=== PATIENT | female | born 1940 | race Caucasian/White ===

== ENCOUNTER 2019-05-03 14:32 | Inpatient (IN) | payer MEDICARE ==
[~2019-05-03] VITALS: Ht 170.2 cm; Wt 66.2 kg
[2019-05-03] MEDS ORDERED: LATA2.5D7 EACHEYE (14:54)
[2019-05-03] MEDS ORDERED: MULT-213 PO (14:54)
[2019-05-03] MEDS ORDERED: ROSU10TA2 PO (14:54)
[2019-05-03] MEDS ORDERED: DULO30CA2 PO (14:54)
[2019-05-03] MEDS ORDERED: BIMA2.5D5 EACHEYE (14:54)
[2019-05-03] MEDS ORDERED: ERGO2000 PO (14:54)
[2019-05-03] MEDS ORDERED: HALDOL IM (15:05)
[2019-05-03] MEDS ORDERED: TIMO5SOL11 EACHEYE (15:05)
[2019-05-03] MEDS ORDERED: MIRT15TA PO (15:05)
[2019-05-03] MEDS ORDERED: AMLO5TAB9 PO (15:05)
[2019-05-03] MEDS ORDERED: BISO1TAB35 PO (15:05)
[2019-05-03] MEDS ORDERED: DOCU100C36 PO (15:05)
[2019-05-03] MEDS ORDERED: TELM40TA2 PO (15:05)
[2019-05-03] MEDS ORDERED: METH-406 PO (15:05)
[2019-05-03] MEDS ORDERED: POLY17PO4 PO (15:05)
[2019-05-03] MEDS ORDERED: TEMA15CA PO (15:05)
[2019-05-03] MEDS ORDERED: RANI150T8 PO (15:05)
[2019-05-03] MEDS ORDERED: SIME80TA15 PO (15:05)
[2019-05-03] MEDS ORDERED: BETH25TA10 PO (15:05)
[2019-05-03] MEDS ORDERED: LACT10SO7 PO (15:05)
[2019-05-03 15:09] LABS: BASOPHILS % (AUTO) 0.5 % (0.0-2.0); EOSINOPHILS # (AUTO) 0.1 K/uL (0.0-0.7); EOSINOPHILS % (AUTO) 2.2 % (0.0-7.0); HEMATOCRIT 36.9 % (31.2-41.9); HEMOGLOBIN 12.1 g/dL (10.9-14.3); LYMPHOCYTES # (AUTO) 1.2 K/uL (20.0-40.0); LYMPHOCYTES % (AUTO) 25.6 % (20.5-51.5); MEAN CORPUSCULAR HEMOGLOBIN 27.8 uug (24.7-32.8); MEAN CORPUSCULAR HGB CONC 33 g/dL (32.3-35.6); MEAN CORPUSCULAR VOLUME 84.6 fL (75.5-95.3); MONOCYTES # (AUTO) 0.6 K/uL (2.0-10.0); MONOCYTES % (AUTO) 12.7 % (0.0-11.0); NEUTROPHILS # (AUTO) 2.7 K/uL (1.8-8.9); PLATELET COUNT (AUTO) 113 K/uL (179-408); RED BLOOD CELL COUNT(AUTO) 4.37 MIL/uL (3.63-4.92); WHITE BLOOD COUNT (AUTO) 4.6 K/uL (3.8-11.8)
[2019-05-03 15:18] LABS: CARBON DIOXIDE 30 mmol/L (21-32); CHLORIDE 110 mmol/L (98-107); CREATININE 0.9 mg/dL (0.6-1.3); GLUCOSE 103 mg/dL (74-106); POTASSIUM 4.4 mmol/L (3.5-5.1); UREA NITROGEN, BLOOD 19 mg/dL (7-18)
[2019-05-03 15:22] LABS: ETHANOL < 3 MG/DL (0-0)
[2019-05-03 15:25] LABS: ALANINE AMINOTRANSFERASE 24 U/L (14-59); ALKALINE PHOSPHATASE 74 U/L (50-136); ASPARTATE AMINOTRANSFERASE 20 U/L (15-37); BILIRUBIN,DIRECT 0.1 mg/dL (0.0-0.2); BILIRUBIN,TOTAL 0.3 mg/dL (0.2-1.0); TOTAL PROTEIN, SERUM 5.7 g/dL (6.4-8.2)
[2019-05-03 15:27] LABS: ACETAMINOPHEN < 2.0 ug/mL (10-30)
[2019-05-03 15:37] LABS: THYROID STIMULATING HORMONE 1.162 mIU/mL (0.358-3.740)
[2019-05-03 15:38] LABS: *BILIRUBIN,URIN 1+ (NEGATIVE); *BLOOD, URINE NEGATIVE (NEGATIVE); *CLARITY,URINE SLIGHTLY CLOUDY (CLEAR); *COLOR,URINE DARK YELLOW (YELLOW); *KETONES,URINE TRACE (NEGATIVE); LEUKOCYTE ESTERASE ,URINE 1+ (NEGATIVE); NITRITE, URINE NEGATIVE (NEGATIVE); PH,URINE 6.5 (5.0-8.0); UGLUCOSE NEGATIVE (NEGATIVE)
[2019-05-03 15:54] LABS: BACTERIA,URINE MANY /HPF (NONE SEEN); MUCUS,URINE MANY /LPF (0-FEW); SQUAMOUS EPITHELIAL CELL,UR MODERATE /HPF (NONE SEEN)
[2019-05-03 16:01] LABS: *AMPHETAMINE, URINE NEGATIVE (NEGATIVE); *BARBITURATE, URINE NEGATIVE (NEGATIVE); *CANNABINOID, URINE NEGATIVE (NEGATIVE); *COCCAINE, URINE NEGATIVE (NEGATIVE); *OPIATE, URINE NEGATIVE (NEGATIVE); *PHENCYCLIDINE SCREEN,URINE NEGATIVE (NEGATIVE)
[2019-05-03] MEDS ORDERED: CEphaleXIN 500 MG CAPSULE PO ONE (16:45)
[2019-05-03] MEDS ORDERED: CEphaleXIN 500 MG CAPSULE ONE (16:50)
[2019-05-03 17:05] VITALS: BP 142/91
[2019-05-03] MEDS ORDERED: SIMETHICONE 80 MG TAB.CHEW PO PRN (17:15)
[2019-05-03] MEDS ORDERED: METHOCARBAMOL 750 MG TABLET PO PRN (17:15)
[2019-05-03] MEDS ORDERED: LACTULOSE 20 G/30 ML LIQUID UDC PO PRN (17:15)
[2019-05-03] MEDS ORDERED: MIRALAX 17 GM POWD.PACK PO PRN (17:15)
[2019-05-03] MEDS ORDERED: Medication Not On Formulary EA (Ergocalciferol (Vitamin D2) (Vitamin D2 TAB) 50,000 UNIT PO SCH (17:15)
[2019-05-03] MEDS ORDERED: ACETAMINOPHEN 325 MG TABLET PO PRN (17:45)
[2019-05-03] MEDS ORDERED: BLOOD SUGAR DIAGNOSTIC 1 EACH STRIP VI ONE (17:45)
[2019-05-03] MEDS ORDERED: MAGNESIUM HYDROXIDE 30 ML LIQUID UDC PO PRN (17:45)
[2019-05-03] MEDS ORDERED: MAG HYDROX/AL HYDROX/SIMETH 30 ML LIQUID UDC PO PRN (17:45)
[2019-05-03] MEDS: CEphaleXIN 500 MG CAPSULE PO SCH (18:40)
[2019-05-03] MEDS ORDERED: TEMAZEPAM 7.5 MG CAPSULE PO PRN (19:45)
[2019-05-03] MEDS: ATORVASTATIN 20 MG TABLET PO SCH (20:36)
[2019-05-03] MEDS: CLONAZEPAM 0.5 MG TABLET PO PRN (20:36)
[2019-05-03 20:58] VITALS: BP 116/66
[2019-05-04 07:30] VITALS: BP 114/85
[2019-05-04] MEDS ORDERED: HALOPERIDOL LACTATE 5 MG/1 ML VIAL IM ONE (08:15)
[2019-05-04] MEDS ORDERED: diphenhydrAMINE 50 MG/1 ML VIAL IM ONE (08:15)
[2019-05-04] MEDS ORDERED: LORAZEPAM 2 MG/1 ML VIAL IM ONE (08:15)
[2019-05-04] MEDS: BETHANECHOL CHLORIDE 25 MG TABLET PO SCH ×3 (08:47→17:57)
[2019-05-04] MEDS: FAMOTIDINE 20 MG TABLET PO SCH (08:56)
[2019-05-04] MEDS: LOSARTAN POTASSIUM 50 MG TABLET PO SCH (08:56)
[2019-05-04] MEDS: DOCUSATE SODIUM 100 MG CAPSULE PO SCH ×2 (08:57→17:42)
[2019-05-04] MEDS: MULTIVITAMINS,THERAPEUTIC TABLET PO SCH (08:57)
[2019-05-04] MEDS: CEphaleXIN 500 MG CAPSULE PO SCH ×2 (08:57→17:42)
[2019-05-04] MEDS: AMLODIPINE 5 MG TABLET PO SCH ×2 (08:58→17:00)
[2019-05-04] MEDS: LATANOPROST OPHT DROP 2.5 ML BOTTLE EACHEYE SCH (08:58)
[2019-05-04] MEDS ORDERED: Medication Not On Formulary EA (Multivitamins W-Minerals (Multivitamin With Minerals) 1 PO SCH (09:00)
[2019-05-04] MEDS ORDERED: Medication Not On Formulary EA (Rosuvastatin Calcium (Crestor) 10 MG) PO SCH (09:00)
[2019-05-04] MEDS: DULOXETINE 30 MG CAPSULE.DR PO SCH (11:32)
[2019-05-04] MEDS: QUETIAPINE FUMARATE 25 MG TABLET PO SCH ×2 (12:44→17:42)
[2019-05-04] MEDS: DIVALPROEX SPRINKLE 125 MG CAP.SPRINK PO SCH ×2 (12:44→17:42)
[2019-05-04 16:00] VITALS: BP 80/46
[2019-05-04 16:45] VITALS: BP 107/69
[2019-05-04 20:51] VITALS: BP 104/58
[2019-05-04] MEDS: ATORVASTATIN 20 MG TABLET PO SCH (21:00)
[2019-05-04] MEDS: MIRTAZAPINE 15 MG TABLET PO SCH (21:00)
[2019-05-05 07:30] VITALS: BP 127/88
[2019-05-05 07:50] LABS: THYROID STIMULATING HORMONE 1.645 mIU/mL (0.358-3.740)
[2019-05-05] MEDS: QUETIAPINE FUMARATE 25 MG TABLET PO SCH ×3 (09:03→16:46)
[2019-05-05] MEDS: FAMOTIDINE 20 MG TABLET PO SCH (09:03)
[2019-05-05] MEDS: DULOXETINE 30 MG CAPSULE.DR PO SCH (09:03)
[2019-05-05] MEDS: LOSARTAN POTASSIUM 50 MG TABLET PO SCH (09:04)
[2019-05-05] MEDS: CEphaleXIN 500 MG CAPSULE PO SCH (09:04)
[2019-05-05] MEDS: DOCUSATE SODIUM 100 MG CAPSULE PO SCH ×2 (09:04→16:47)
[2019-05-05] MEDS: MULTIVITAMINS,THERAPEUTIC TABLET PO SCH (09:04)
[2019-05-05] MEDS: BETHANECHOL CHLORIDE 25 MG TABLET PO SCH ×3 (09:04→16:46)
[2019-05-05] MEDS: LATANOPROST OPHT DROP 2.5 ML BOTTLE EACHEYE SCH (09:05)
[2019-05-05] MEDS: DIVALPROEX SPRINKLE 125 MG CAP.SPRINK PO SCH ×3 (09:05→16:46)
[2019-05-05] MEDS: AMLODIPINE 5 MG TABLET PO SCH ×2 (09:05→16:47)
[2019-05-05] MEDS: METHOCARBAMOL 500 MG TABLET PO PRN (12:58)
[2019-05-05 16:52] VITALS: BP 93/55
[2019-05-05] MEDS: NITROFURANTOIN/NITROFURAN MAC 100 MG CAPSULE PO SCH (20:24)
[2019-05-05] MEDS: MIRTAZAPINE 15 MG TABLET PO SCH (20:25)
[2019-05-05] MEDS: ATORVASTATIN 20 MG TABLET PO SCH (20:25)
[2019-05-05 20:44] VITALS: BP 114/67
[2019-05-06 08:00] VITALS: BP 128/78
[2019-05-06] MEDS: LATANOPROST OPHT DROP 2.5 ML BOTTLE EACHEYE SCH (09:22)
[2019-05-06] MEDS: DOCUSATE SODIUM 100 MG CAPSULE PO SCH ×2 (09:22→17:13)
[2019-05-06] MEDS: FAMOTIDINE 20 MG TABLET PO SCH (09:23)
[2019-05-06] MEDS: DIVALPROEX SPRINKLE 125 MG CAP.SPRINK PO SCH ×3 (09:23→17:13)
[2019-05-06] MEDS: QUETIAPINE FUMARATE 25 MG TABLET PO SCH ×3 (09:23→17:13)
[2019-05-06] MEDS: DULOXETINE 30 MG CAPSULE.DR PO SCH (09:23)
[2019-05-06] MEDS: BETHANECHOL CHLORIDE 25 MG TABLET PO SCH ×3 (09:23→17:13)
[2019-05-06] MEDS: AMLODIPINE 5 MG TABLET PO SCH ×2 (09:24→17:00)
[2019-05-06] MEDS: LOSARTAN POTASSIUM 50 MG TABLET PO SCH (09:24)
[2019-05-06] MEDS: MULTIVITAMINS,THERAPEUTIC TABLET PO SCH (09:24)
[2019-05-06] MEDS: NITROFURANTOIN/NITROFURAN MAC 100 MG CAPSULE PO SCH ×2 (09:26→20:36)
[2019-05-06 15:50] VITALS: BP 96/65
[2019-05-06] MEDS: MIRTAZAPINE 15 MG TABLET PO SCH (20:36)
[2019-05-06] MEDS: ATORVASTATIN 20 MG TABLET PO SCH (20:36)
[2019-05-07 07:49] VITALS: BP 107/68
[2019-05-07] MEDS: NITROFURANTOIN/NITROFURAN MAC 100 MG CAPSULE PO SCH ×2 (08:47→20:48)
[2019-05-07] MEDS: LATANOPROST OPHT DROP 2.5 ML BOTTLE EACHEYE SCH (08:47)
[2019-05-07] MEDS: FAMOTIDINE 20 MG TABLET PO SCH (08:48)
[2019-05-07] MEDS: DOCUSATE SODIUM 100 MG CAPSULE PO SCH ×2 (08:48→17:21)
[2019-05-07] MEDS: BETHANECHOL CHLORIDE 25 MG TABLET PO SCH ×3 (08:48→17:21)
[2019-05-07] MEDS: MULTIVITAMINS,THERAPEUTIC TABLET PO SCH (08:48)
[2019-05-07] MEDS: DULOXETINE 30 MG CAPSULE.DR PO SCH (08:48)
[2019-05-07] MEDS: LOSARTAN POTASSIUM 50 MG TABLET PO SCH (08:49)
[2019-05-07] MEDS: DIVALPROEX SPRINKLE 125 MG CAP.SPRINK PO SCH ×3 (08:49→17:22)
[2019-05-07] MEDS: QUETIAPINE FUMARATE 25 MG TABLET PO SCH ×3 (08:49→17:22)
[2019-05-07] MEDS: AMLODIPINE 5 MG TABLET PO SCH ×2 (08:50→17:22)
[2019-05-07 15:52] VITALS: BP 90/49
[2019-05-07 16:30] VITALS: BP 95/53
[2019-05-07] MEDS: MIRTAZAPINE 15 MG TABLET PO SCH (20:48)
[2019-05-07] MEDS: ATORVASTATIN 20 MG TABLET PO SCH (20:48)
[2019-05-07 21:10] VITALS: BP 91/53
[2019-05-07] MEDS: CLONAZEPAM 0.5 MG TABLET PO PRN (23:15)
[2019-05-08 04:00] VITALS: BP 124/71
[2019-05-08 07:30] VITALS: BP 105/77
[2019-05-08] MEDS: DIVALPROEX SPRINKLE 125 MG CAP.SPRINK PO SCH ×3 (08:56→18:04)
[2019-05-08] MEDS: QUETIAPINE FUMARATE 25 MG TABLET PO SCH ×3 (08:57→18:05)
[2019-05-08] MEDS: BETHANECHOL CHLORIDE 25 MG TABLET PO SCH ×3 (08:57→18:07)
[2019-05-08] MEDS: LOSARTAN POTASSIUM 50 MG TABLET PO SCH (08:57)
[2019-05-08] MEDS: MULTIVITAMINS,THERAPEUTIC TABLET PO SCH (08:57)
[2019-05-08] MEDS: NITROFURANTOIN/NITROFURAN MAC 100 MG CAPSULE PO SCH ×2 (08:57→20:12)
[2019-05-08] MEDS: DULOXETINE 30 MG CAPSULE.DR PO SCH (08:57)
[2019-05-08] MEDS: FAMOTIDINE 20 MG TABLET PO SCH (08:57)
[2019-05-08] MEDS: DOCUSATE SODIUM 100 MG CAPSULE PO SCH ×2 (08:58→18:05)
[2019-05-08] MEDS: AMLODIPINE 5 MG TABLET PO SCH ×2 (08:58→17:00)
[2019-05-08] MEDS: ERGOCALCIFEROL 50,000 UNIT CAPSULE PO SCH (09:01)
[2019-05-08] MEDS: LATANOPROST OPHT DROP 2.5 ML BOTTLE EACHEYE SCH (09:03)
[2019-05-08 16:00] VITALS: BP 104/79
[2019-05-08] MEDS: MIRTAZAPINE 15 MG TABLET PO SCH (20:12)
[2019-05-08] MEDS: ATORVASTATIN 20 MG TABLET PO SCH (20:12)
[2019-05-08] MEDS: CLONAZEPAM 0.5 MG TABLET PO PRN (20:20)
[2019-05-08 23:19] VITALS: BP 118/67
[2019-05-09 05:51] VITALS: BP 143/93
[2019-05-09] MEDS: DOCUSATE SODIUM 100 MG CAPSULE PO SCH ×2 (08:22→17:44)
[2019-05-09] MEDS: QUETIAPINE FUMARATE 25 MG TABLET PO SCH ×3 (08:22→17:44)
[2019-05-09] MEDS: MULTIVITAMINS,THERAPEUTIC TABLET PO SCH (08:23)
[2019-05-09] MEDS: DULOXETINE 30 MG CAPSULE.DR PO SCH (08:23)
[2019-05-09] MEDS: DIVALPROEX SPRINKLE 125 MG CAP.SPRINK PO SCH ×2 (08:23→17:44)
[2019-05-09] MEDS: FAMOTIDINE 20 MG TABLET PO SCH (08:23)
[2019-05-09] MEDS: AMLODIPINE 5 MG TABLET PO SCH ×2 (08:23→17:00)
[2019-05-09] MEDS: BETHANECHOL CHLORIDE 25 MG TABLET PO SCH ×3 (08:23→17:44)
[2019-05-09] MEDS: LOSARTAN POTASSIUM 50 MG TABLET PO SCH (08:24)
[2019-05-09] MEDS: LATANOPROST OPHT DROP 2.5 ML BOTTLE EACHEYE SCH (08:32)
[2019-05-09 15:46] VITALS: BP 94/62
[2019-05-09] MEDS: CLONAZEPAM 0.5 MG TABLET PO PRN (16:07)
[2019-05-09 20:00] VITALS: BP 114/72
[2019-05-09] MEDS: ATORVASTATIN 20 MG TABLET PO SCH (20:45)
[2019-05-09] MEDS: MIRTAZAPINE 15 MG TABLET PO SCH (20:45)
[2019-05-10 08:00] VITALS: BP 117/80
[2019-05-10] MEDS: DULOXETINE 30 MG CAPSULE.DR PO SCH (08:55)
[2019-05-10] MEDS: DIVALPROEX SPRINKLE 125 MG CAP.SPRINK PO SCH ×2 (08:55→16:50)
[2019-05-10] MEDS: QUETIAPINE FUMARATE 25 MG TABLET PO SCH ×3 (08:57→16:51)
[2019-05-10] MEDS: BETHANECHOL CHLORIDE 25 MG TABLET PO SCH ×3 (08:57→16:51)
[2019-05-10] MEDS: FAMOTIDINE 20 MG TABLET PO SCH (08:57)
[2019-05-10] MEDS: MULTIVITAMINS,THERAPEUTIC TABLET PO SCH (08:58)
[2019-05-10] MEDS: LATANOPROST OPHT DROP 2.5 ML BOTTLE EACHEYE SCH (08:58)
[2019-05-10] MEDS: DOCUSATE SODIUM 100 MG CAPSULE PO SCH ×2 (08:58→16:50)
[2019-05-10] MEDS: AMLODIPINE 5 MG TABLET PO SCH ×2 (09:00→16:51)
[2019-05-10] MEDS: LOSARTAN POTASSIUM 50 MG TABLET PO SCH (09:00)
[2019-05-10 13:22] VITALS: BP 87/55
[2019-05-10 13:38] VITALS: BP 98/54
[2019-05-10 14:27] VITALS: BP 145/81
[2019-05-10 16:46] VITALS: BP 108/70
[2019-05-10 19:49] VITALS: BP 96/67
[2019-05-10] MEDS: CLONAZEPAM 0.5 MG TABLET PO PRN (20:30)
[2019-05-10] MEDS: ATORVASTATIN 20 MG TABLET PO SCH (20:30)
[2019-05-10] MEDS: MIRTAZAPINE 15 MG TABLET PO SCH (20:30)
[2019-05-11 07:39] VITALS: BP 105/66
[2019-05-11] MEDS: DULOXETINE 30 MG CAPSULE.DR PO SCH (08:42)
[2019-05-11] MEDS: DIVALPROEX SPRINKLE 125 MG CAP.SPRINK PO SCH ×2 (08:43→17:09)
[2019-05-11] MEDS: BETHANECHOL CHLORIDE 25 MG TABLET PO SCH ×3 (08:43→17:09)
[2019-05-11] MEDS: MULTIVITAMINS,THERAPEUTIC TABLET PO SCH (08:43)
[2019-05-11] MEDS: QUETIAPINE FUMARATE 25 MG TABLET PO SCH ×3 (08:44→17:10)
[2019-05-11] MEDS: LATANOPROST OPHT DROP 2.5 ML BOTTLE EACHEYE SCH (08:44)
[2019-05-11] MEDS: DOCUSATE SODIUM 100 MG CAPSULE PO SCH ×2 (08:44→17:11)
[2019-05-11] MEDS: FAMOTIDINE 20 MG TABLET PO SCH (08:44)
[2019-05-11] MEDS: AMLODIPINE 5 MG TABLET PO SCH ×2 (08:45→17:11)
[2019-05-11] MEDS: LOSARTAN POTASSIUM 50 MG TABLET PO SCH (08:45)
[2019-05-11] MEDS: CLONAZEPAM 0.5 MG TABLET PO PRN ×2 (10:22→18:17)
[2019-05-11 11:35] VITALS: BP 92/56
[2019-05-11] MEDS: METHOCARBAMOL 500 MG TABLET PO PRN (11:44)
[2019-05-11 16:52] VITALS: BP 106/62
[2019-05-11 19:30] VITALS: BP 85/50
[2019-05-11] MEDS ORDERED: LORAZEPAM 2 MG/1 ML VIAL IM ONE (20:30)
[2019-05-11] MEDS: MIRTAZAPINE 15 MG TABLET PO SCH (20:41)
[2019-05-11] MEDS: ATORVASTATIN 20 MG TABLET PO SCH (20:41)
[2019-05-11] MEDS: TEMAZEPAM 7.5 MG CAPSULE PO PRN (21:17)
[2019-05-12] VITALS (10 sets, daily range): BP systolic 75–109; BP diastolic 39–71
[2019-05-12] MEDS: CLONAZEPAM 0.5 MG TABLET PO PRN (06:44)
[2019-05-12] MEDS: AMLODIPINE 5 MG TABLET PO SCH ×2 (09:00→17:00)
[2019-05-12] MEDS: LOSARTAN POTASSIUM 50 MG TABLET PO SCH (09:00)
[2019-05-12] MEDS: BETHANECHOL CHLORIDE 25 MG TABLET PO SCH ×3 (09:43→16:58)
[2019-05-12] MEDS: DOCUSATE SODIUM 100 MG CAPSULE PO SCH ×2 (09:43→16:58)
[2019-05-12] MEDS: QUETIAPINE FUMARATE 25 MG TABLET PO SCH ×3 (09:43→17:05)
[2019-05-12] MEDS: MULTIVITAMINS,THERAPEUTIC TABLET PO SCH (09:43)
[2019-05-12] MEDS: DULOXETINE 30 MG CAPSULE.DR PO SCH (09:43)
[2019-05-12] MEDS: FAMOTIDINE 20 MG TABLET PO SCH (09:43)
[2019-05-12] MEDS: DIVALPROEX SPRINKLE 125 MG CAP.SPRINK PO SCH ×2 (09:43→17:00)
[2019-05-12] MEDS: LATANOPROST OPHT DROP 2.5 ML BOTTLE EACHEYE SCH (09:44)
[2019-05-12] MEDS ORDERED: IV NS 1000 ML 1,000 ML IV ONE ×2 (18:45→19:45)
[2019-05-12] MEDS: MIRTAZAPINE 15 MG TABLET PO SCH ×2 (20:02→20:14)
[2019-05-12] MEDS: ATORVASTATIN 20 MG TABLET PO SCH (20:02)
[2019-05-13] VITALS (8 sets, daily range): BP systolic 102–122; BP diastolic 62–78
[2019-05-13] MEDS: DOCUSATE SODIUM 100 MG CAPSULE PO SCH ×3 (08:42→16:24)
[2019-05-13] MEDS: AMLODIPINE 5 MG TABLET PO SCH ×3 (08:43→16:24)
[2019-05-13] MEDS: FAMOTIDINE 20 MG TABLET PO SCH (08:43)
[2019-05-13] MEDS: BETHANECHOL CHLORIDE 25 MG TABLET PO SCH ×4 (08:43→16:25)
[2019-05-13] MEDS: MULTIVITAMINS,THERAPEUTIC TABLET PO SCH (08:43)
[2019-05-13] MEDS: LOSARTAN POTASSIUM 50 MG TABLET PO SCH (08:43)
[2019-05-13] MEDS: LATANOPROST OPHT DROP 2.5 ML BOTTLE EACHEYE SCH (08:44)
[2019-05-13] MEDS: METHOCARBAMOL 500 MG TABLET PO PRN (12:16)
[2019-05-13] MEDS: QUETIAPINE FUMARATE 25 MG TABLET PO SCH ×2 (17:17→20:05)
[2019-05-13] MEDS: DIVALPROEX SPRINKLE 125 MG CAP.SPRINK PO SCH (20:04)
[2019-05-13] MEDS: ATORVASTATIN 20 MG TABLET PO SCH (20:04)
[2019-05-13] MEDS: MIRTAZAPINE 15 MG TABLET PO SCH (20:05)
[2019-05-13] MEDS ORDERED: OLANZAPINE 10 MG VIAL IM ONE (20:45)
[2019-05-13] MEDS: TEMAZEPAM 7.5 MG CAPSULE PO PRN (22:18)
[2019-05-14] MEDS: QUETIAPINE FUMARATE 25 MG TABLET PO SCH ×3 (08:19→21:00)
[2019-05-14] MEDS: DOCUSATE SODIUM 100 MG CAPSULE PO SCH ×2 (08:19→17:00)
[2019-05-14] MEDS: LATANOPROST OPHT DROP 2.5 ML BOTTLE EACHEYE SCH (08:19)
[2019-05-14] MEDS: DIVALPROEX SPRINKLE 125 MG CAP.SPRINK PO SCH ×2 (08:19→20:29)
[2019-05-14] MEDS: LOSARTAN POTASSIUM 50 MG TABLET PO SCH (08:21)
[2019-05-14] MEDS: AMLODIPINE 5 MG TABLET PO SCH ×2 (08:24→17:00)
[2019-05-14] MEDS: BETHANECHOL CHLORIDE 25 MG TABLET PO SCH ×3 (08:24→17:00)
[2019-05-14] MEDS: MULTIVITAMINS,THERAPEUTIC TABLET PO SCH (08:24)
[2019-05-14] MEDS: FAMOTIDINE 20 MG TABLET PO SCH (08:24)
[2019-05-14] MEDS ORDERED: DULOXETINE 30 MG CAPSULE.DR PO SCH (09:00)
[2019-05-14] MEDS: CLONAZEPAM 0.5 MG TABLET PO PRN (12:06)
[2019-05-14 15:29] VITALS: BP 86/55
[2019-05-14 20:18] VITALS: BP 117/59
[2019-05-14] MEDS: MIRTAZAPINE 15 MG TABLET PO SCH (20:30)
[2019-05-14] MEDS: ATORVASTATIN 20 MG TABLET PO SCH (20:30)
[2019-05-15 07:30] VITALS: BP 167/71
[2019-05-15] MEDS: CLONAZEPAM 0.5 MG TABLET PO PRN (07:33)
[2019-05-15] MEDS: FAMOTIDINE 20 MG TABLET PO SCH (09:00)
[2019-05-15] MEDS: DIVALPROEX SPRINKLE 125 MG CAP.SPRINK PO SCH (09:00)
[2019-05-15] MEDS: AMLODIPINE 5 MG TABLET PO SCH ×2 (09:00→17:33)
[2019-05-15] MEDS: DOCUSATE SODIUM 100 MG CAPSULE PO SCH ×2 (09:00→17:32)
[2019-05-15] MEDS ORDERED: DULOXETINE 60 MG CAPSULE.DR PO SCH (09:00)
[2019-05-15] MEDS: MULTIVITAMINS,THERAPEUTIC TABLET PO SCH (09:00)
[2019-05-15] MEDS ORDERED: DULOXETINE 30 MG CAPSULE.DR PO SCH (09:00)
[2019-05-15] MEDS: LATANOPROST OPHT DROP 2.5 ML BOTTLE EACHEYE SCH (09:00)
[2019-05-15] MEDS: ERGOCALCIFEROL 50,000 UNIT CAPSULE PO SCH (09:00)
[2019-05-15] MEDS: BETHANECHOL CHLORIDE 25 MG TABLET PO SCH ×3 (09:00→17:32)
[2019-05-15] MEDS: LOSARTAN POTASSIUM 50 MG TABLET PO SCH (09:00)
[2019-05-15] MEDS: QUETIAPINE FUMARATE 25 MG TABLET PO SCH ×2 (09:00→17:32)
[2019-05-15 16:00] VITALS: BP 93/66
[2019-05-15 17:33] VITALS: BP 120/71
== END 2019-05-15 19:37 | DRG 885 ==
LOC: ER 14:32 → GPS 16:51 → GPSOV3 05-07 16:11 → GPS 05-13 16:23 → GPSOV3 05-13 18:42 → GPS 05-13 20:46
PROVIDERS: ADMIT Psychiatry & Neurology Psychiatry; ATTEND Registered Nurse
DX: F39 Unspecified mood [affective] disorder (principal); B95.2 Enterococcus as the cause of diseases classified elsewhere; G92 Toxic encephalopathy; N39.0 Urinary tract infection, site not specified; E87.0 Hyperosmolality and hypernatremia; F29 Unspecified psychosis not due to a substance or known physiological condition; E86.0 Dehydration; Z86.73 Personal history of transient ischemic attack (TIA), and cerebral infarction without residual deficits; K21.9 Gastro-esophageal reflux disease without esophagitis; G89.29 Other chronic pain; D69.6 Thrombocytopenia, unspecified; E78.5 Hyperlipidemia, unspecified; H40.9 Unspecified glaucoma; R26.2 Difficulty in walking, not elsewhere classified; R79.89 Other specified abnormal findings of blood chemistry; M51.36 Other intervertebral disc degeneration, lumbar region; M62.81 Muscle weakness (generalized); Z91.81 History of falling; Z79.899 Other long term (current) drug therapy; I10 Essential (primary) hypertension; F03.90 Unspecified dementia, unspecified severity, without behavioral disturbance, psychotic disturbance, mood disturbance, and anxiety
CPT/HCPCS: 36415; 70030-TC; 70450; 71045; 80164; 80307; 84443; 85025; 85730; 87077; 87086; 93005; A4663; G0480; G0480-TC; J1200; J1630; J2060; J2358